=== PATIENT | male | born 1965 | race Two or more races ===

== ENCOUNTER 2025-06-06 15:09 | Emergency (ER) | payer OTHER ==
[~2025-06-06] VITALS: Ht 175.3 cm; Wt 98.9 kg
[2025-06-06] MEDS ORDERED: METFORMIN HCL500 M3 (16:22)
[2025-06-06] MEDS ORDERED: TENORMIN25 MG (16:23)
[2025-06-06] MEDS ORDERED: LYUMJEV100 UNIT/1 (16:23)
[2025-06-06] MEDS ORDERED: 0.9 % SODIUM CHLORIDE 1,000 ML IV STA ×2 (16:24→18:33)
[2025-06-06 17:18] LABS: BASO % 0.7 % (0.1-1.2); EOS # 0.09 (0.04-0.54); EOS % 1.1 % (0.7-7.0); LYMPH # 2.20 (1.18-3.74); LYMPH % 26.6 % (19.3-53.1); MEAN PLATELET VOLUME 10.90 fl (9.4-12.4); MONO # 0.77 (0.24-0.82); MONO % 9.3 % (4.7-12.5); NEUT # 5.12 (1.56-6.13); NEUT % 62.1 % (34.0-71.1); RED CELL DISTRIBUTION WIDTH 11.3 % (11.6-14.4)
[2025-06-06 17:22] LABS: ERYTHROCYTE SEDIMENTATION RATE 22 mm/hr (0-20)
[2025-06-06 18:07] LABS: URINE APPEARANCE Clear; URINE BILIRRUBIN Negative (NEGATIVE); URINE BLOOD Negative; URINE COLOR Yellow; URINE KETONE Negative (NEGATIVE); URINE LEUKOCYTE Negative; URINE NITRATE Negative; URINE PROTEIN Negative (NEGATIVE); URINE UROBILINOGEN 0.2 E.U./dl
[2025-06-06 18:12] LABS: INR 1.02
[2025-06-06 18:14] LABS: ALT/SGPT 87.0 U/L (12-78); AST/SGOT 46.0 U/L (15-37); BILIRUBIN TOTAL 0.86 mg/dL (0.3-1.2); BUN CREA RATIO 14.0 (7.0-25.0); CREATININE SERUM 0.91 mg/dL (0.70-1.30); GFR 85.87; GLOBULINA 4.0 G/DL (2.4-3.5)
[2025-06-06 18:18] LABS: URINE BACTERIA 2.2 uL (0.0-1933); URINE CAST 0.00 uL (0.0-1.40); URINE EPITHELIAL CELLS 0.1 uL (0.0-38.8); URINE GLUCOSE >=1000 MG/DL (NEGATIVE); URINE RBC 0.1 uL (0.0-20.8); URINE WBC 0.7 uL (0.0-23.2)
[2025-06-06 18:26] LABS: GLUCOSE FASTING 437.0 mg/dL (65-100); OSMOLALITY SERUM 278.0 MOSM/KG (275-295)
[2025-06-06] MEDS ORDERED: INSULIN REGULAR, HUMAN 1,000 UNIT/10 ML UNITS SUBCUTANEO STA (18:34)
[2025-06-06 22:20] LABS: BUN CREA RATIO 16.0 (7.0-25.0); CREATININE SERUM 0.64 mg/dL (0.70-1.30); GFR 128.9; GLUCOSE FASTING 114.0 mg/dL (65-100); OSMOLALITY SERUM 272.0 MOSM/KG (275-295)
== END 2025-06-06 23:38 | disposition home or self-care (01) ==
LOC: ER 15:10
PROVIDERS: Physician Assistant Medical
DX: E11.65 Type 2 diabetes mellitus with hyperglycemia (principal); Z79.4 Long term (current) use of insulin
CPT/HCPCS: 36415; 71046; 82803; 96365; 96372; 99283; J7030